=== PATIENT | male | born 1950 | race Caucasian/White ===

== ENCOUNTER 2016-06-20 11:25 | Emergency (ER) | payer BC, OTHER ==
[2016-06-20 12:20] VITALS: BP 112/77; PULSE 99; TEMP 98.4; BMI 21.7
--- NOTE | 2016-06-20 13:10 | PDOC ---
"History of Present Illness - General Chief Complaint: Back Pain Stated Complaint: LOWER BACK PAIN, REFILLS FOR MEDS Time Seen by Provider: 06/20/16 12:56 History Source: Patient Exam Limitations: No Limitations - History of Present Illness Initial Comments: 06/20/16 13:12 My Chief Complaint: Chronic neck and lower back pain with radiculopathy down arms and legs History of present illness: Patient is a 65-year-old male with a history of chronic neck pain with radiation down bilateral arms with tingling of hands and chronic lower back pain with radiculopathy down legs. Patient reports having had a laminectomy in 1993. 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 Patient generally receives epidurals of the cervical neck and lumbar spine last got on 2015. Patient takes tramadol/APAP 37.5/325 for chronic pain as needed and takes gabapentin hour asleep. Patient is here requesting a refill of his tramadol. Patient is here visiting family lives in [place]. Reports that pain in neck and lower back is currently an 8 out of 10 and is on constant. Timing/Duration: constant Severity: severe Associated Symptoms: reports: other (cervical neck with radiaton down b/l arms, lower back with b/l radiation down legs) Past History - Past Medical History Allergies/Adverse Reactions: Allergies Allergy/AdvReac Type Severity Reaction Status Date / Time No Known Allergies Allergy Verified 06/20/16 12:14 Home Medications: Ambulatory Orders Tramadol HCl/Acetaminophen [Tramadol-Acetaminophn 37.5-325] 1 each PO Q6H PRN # 28 tablet MDD 4 06/20/16 Other medical history: lumbar herniations with radiculopathy, cervical neck hernitations - Surgical History Appendectomy: Yes - Psycho/Social/Smoking Cessation Hx Suicidal Ideation: No Smoking History: Current every day smoker Number of Cigarettes Smoked Daily: 10 Information on smoking cessation initiated: No Review of Systems - Review of Systems Able to Perform ROS?: Yes Constitutional: No: Symptoms Reported HEENTM: No: Symptoms Reported Respiratory: No: Symptoms reported Cardiac (ROS): No: Symptoms Reported ABD/GI: No: Symptoms Reported : No: Symptoms Reported Musculoskeletal: Yes: Back Pain (with lumbar radiculopathy b/l legs ), Neck Pain (with radiculopathy b/l arms, ) Integumentary: No: Symptoms Reported Neurological: Yes: Tingling (hands b/l chronic) *Physical Exam - Vital Signs Last Vital Signs Temp Pulse Resp BP Pulse Ox 98.4 F 99 H 18 112/77 96 06/20/16 12:14 06/20/16 12:14 06/20/16 12:14 06/20/16 12:14 06/20/16 12:14 - Physical Exam General Appearance: Yes: Appropriately Dressed Neck: positive: Decreased range of motion, Tender lateral, Tender midline. negative: Tender, Rigidity Respiratory/Chest: positive: Lungs Clear, Normal Breath Sounds. negative: Chest Tender, Respiratory Distress Cardiovascular: positive: Regular Rhythm, Regular Rate, S1, S2 Musculoskeletal: positive: Normal Inspection, Decreased Range of Motion (from waist). negative: CVA Tenderness, CVA Tenderness (R), CVA Tenderness (L), Muscle Spasm Integumentary: positive: Normal Color Neurologic: positive: Normal Response, Motor Strength 5/5 (upper and lower extremities motor 4/strength 4 ), Respond to painful stimul (arms b/l and legs ) , Responsive. negative: Sensory Deficit (b/l arms and legs) Deep Tendon Reflexes: Knee (L): 4+, Knee (R): 4+ Medical Decision Making - Medical Decision Making 06/20/16 13:14 Patient is a 65-year-old male with a history of chronic neck pain with radiation down bilateral arms with tingling of hands and chronic lower back pain with radiculopathy down legs. Patient reports having had a laminectomy in 1993. 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 Patient generally receives epidurals of the cervical neck and lumbar spine last got on 2015. Patient takes tramadol/APAP 37.5/325 for chronic pain as needed and takes gabapentin hour asleep. Patient is here requesting a refill of his tramadol. Patient is here visiting family lives in [place]. Reports that pain in neck and lower back is currently an 8 out of 10 and is on constant. Chronic cervical neck pain with radiculopathy arms to hands with paresthesia of her hands that is unchanged and lumbar back pain with radiculopathy down legs laterally Plan: Refill tramadol 37.5/325 mg every 6 hours when necessary pain 7 days 06/20/16 13:22 This report was requested by: Mirian Keith | Reference #: [id number] Others' Prescriptions Patient Name: Joshua Mosqueda Date: 1950 Address: [address] [place] [address] Sex: Male Rx Written Rx Dispensed Drug Quantity Days Supply Prescriber Name 06/13/2016 06/13/2016 tramadol-acetaminophen 37.5-325 mg tab 12 3 Piero Spain MD *DC/Admit/Observation/Transfer Diagnosis at time of Disposition: Cervical pain (neck), Lumbar radiculopathy, chronic - Discharge Dispostion Disposition: HOME Condition at time of disposition: Stable - Patient Instructions Additional Instructions: Follow-up with . pain management doctor as soon as possible Return to emergency room if symptoms worsen any numbness of groin or inability to hold your urine or bowel movements Patient voiced understanding of discharge instructions and all questions were answered"
== END 2016-06-20 13:23 | disposition home or self-care (01) ==
LOC: JERFT 11:25
DX: M54.2 Cervicalgia (principal); M54.5 Low back pain; M54.16 Radiculopathy, lumbar region; G89.29 Other chronic pain; R20.2 Paresthesia of skin; F17.210 Nicotine dependence, cigarettes, uncomplicated
CPT/HCPCS: 99281-25